=== PATIENT | female | born 1935 | race Caucasian/White ===

== ENCOUNTER 2019-05-16 12:33 | Emergency (ER) | payer MEDICARE, OTHER ==
--- NOTE | 2019-05-16 13:15 | ER Document Report ---
ED Medical Screen (RME) - General Chief Complaint: Weakness Stated Complaint: WEAKNESS Time Seen by Provider: 05/16/19 13:03 Primary Care Provider: IVAN BRIGGS MD [Primary Care Provider] - Follow up as needed Notes: 81-year-old female with no significant past medical history presents to the emergency department with chief complaint of the feeling of wanting to fall forward when she stands up. She states that she not have any dizziness, lightheadedness, vertigo but every time she stands up to try to do something she "feels like my face wants to plant into the ground". She denies any recent illness or vision changes, denies headache, denies acute weakness, denies acute shortness of breath or chest pain, denies nausea/vomiting/diarrhea. She states that she is prone to getting dehydrated and feels that she might be dehydrated at this time. I have greeted and performed a rapid initial assessment of this patient. A comprehensive ED assessment and evaluation of the patient, analysis of test results and completion of medical decision making process will be conducted by an additional ED providers. TRAVEL OUTSIDE OF THE [place] IN LAST 30 DAYS: No - Related Data Allergies/Adverse Reactions: Sulfa (Sulfonamide Antibiotics) Allergy (Verified 05/16/19 12:34) Past Medical History Endocrine Medical History: Reports: Hx Diabetes Mellitus Type 2 Renal/ Medical History: Denies: Hx Peritoneal Dialysis Past Surgical History: Reports: Hx Abdominal Surgery - 1/2 STOMACH /BLEEDING ULCERS, Hx Breast Surgery - BILATERAL MASTECTOMY Physical Exam - Vital signs Vitals: Temp Pulse Resp BP Pulse Ox 98.1 F 84 18 170/63 H 98 05/16/19 12:40 05/16/19 12:40 05/16/19 12:40 05/16/19 12:40 05/16/19 12:40 - Notes Notes: PHYSICAL EXAMINATION: Reviewed vital signs and charting by RN GENERAL: Alert, interacts well. No acute distress. HEAD: Normocephalic, atraumatic. EYES: Pupils equal and round. Extraocular movements intact. ENT: Oral mucosa moist, tongue midline. NECK: Full range of motion. Trachea midline. LUNGS: Clear to auscultation bilaterally, no wheezes, rales, or rhonchi. No respiratory distress. HEART: Regular rate and rhythm. No murmur EXTREMITIES: Moves all 4 extremities spontaneously. No edema, No cyanosis. PSYCH: Normal affect, normal mood. NEURO: A &O X 3, normal speech, normal gailt, PERRL, EOMI, SILT, follows commands in all 4 extremities, no gross abnormalities of cranial nerves, no focal neuro deficits, no pronator drift, [id number] testing normal, rapid alternating hand movements normal, [id number] normal, chemical blender strength 5/5 bilateral, 5/5 strength in both proximal and distal upper and lower extremities SKIN: Warm, dry, normal turgor. No rashes or lesions noted. Course - Vital Signs Vital signs: Temp Pulse Resp BP Pulse Ox 98.1 F 84 18 170/63 H 98 05/16/19 12:40 05/16/19 12:40 05/16/19 12:40 05/16/19 12:40 05/16/19 12:40 Doctor's Discharge - Discharge Referrals: IVAN BRIGGS MD [Primary Care Provider] - Follow up as needed
[2019-05-16 14:11] LABS: APPEARANCE,URINE SLIGHTLY-CLOUDY; BILIRUBIN,URINE NEGATIVE (NEGATIVE); COLOR,URINE YELLOW; GLUCOSE, URINE NEGATIVE (NEGATIVE); KETONES,URINE NEGATIVE (NEGATIVE); LEUKOCYTE ESTERASE,URINE LARGE (NEGATIVE); NITRITE,URINE NEGATIVE (NEGATIVE); PROTEIN,URINE NEGATIVE (NEGATIVE); UROBILINOGEN,URINE NEGATIVE mg/dL (<2.0)
[2019-05-16 14:12] LABS: ALANINE AMINOTRANSFERASE 25 U/L (9-52); ALBUMIN 4.1 g/dL (3.5-5.0); ALKALINE PHOSPHATASE 132 U/L (38-126); ANION GAP 11 (5-19); ASPARTATE AMINO TRANSFERASE 27 U/L (14-36); BILIRUBIN,DIRECT 0.1 mg/dL (0.0-0.4); BILIRUBIN,TOTAL 0.5 mg/dL (0.2-1.3); BLOOD UREA NITROGEN 13 mg/dL (7-20); CALCIUM 9.4 mg/dL (8.4-10.2); CARBON DIOXIDE 24 mmol/L (22-30); CHLORIDE 94 mmol/L (98-107); GLUCOSE 145 mg/dL (75-110); POTASSIUM 4.6 mmol/L (3.6-5.0); TOTAL PROTEIN 6.8 g/dL (6.3-8.2)
[2019-05-16 14:18] LABS: ABSOLUTE BASOPHILS # (AUTO) 0.1 10^3/uL (0.0-0.2); ABSOLUTE LYMPHOCYTES (AUTO) 1.7 10^3/uL (0.5-4.7); ABSOLUTE MONOCYTES (AUTO) 1.3 10^3/uL (0.1-1.4); ABSOLUTE NEUT (AUTO) 6.8 10^3/uL (1.7-8.2); BASOPHILS % (AUTO) 0.6 % (0-2); HEMOGLOBIN 11.3 g/dL (12.0-15.5); LYMPHOCYTES % (AUTO) 17.6 % (13-45); MEAN CORPUSCULAR HEMOGLOBIN 23.3 pg (27.0-33.4); MEAN CORPUSCULAR HGB CONC 32.4 g/dL (32.0-36.0); MEAN CORPUSCULAR VOLUME 72 fl (80-97); MONOCYTES % (AUTO) 13.1 % (3-13); PLATELET COUNT 429 10^3/uL (150-450); RED BLOOD COUNT 4.87 10^6/uL (3.72-5.28); RED CELL DISTRIBUTION WIDTH 17.3 % (11.5-14.0); SEGMENTED NEUTROPHILS % (AUTO) 68.7 % (42-78); TOTAL CELLS COUNTED % (AUTO) 100 %; WHITE BLOOD COUNT 9.9 10^3/uL (4.0-10.5)
[2019-05-16 14:37] LABS: CREATINE KINASE MB 1.17 ng/mL (<4.55)
[2019-05-16 14:39] LABS: TROPONIN I < 0.012 ng/mL
[2019-05-16] MEDS ORDERED: CEPHALEXIN 500 MG CAPSULE PO ONE (15:33)
[2019-05-16 16:00] VITALS: BP 168/72
--- NOTE | 2019-05-16 18:00 | EKG REPORT ---
SEVERITY:- BORDERLINE ECG - SINUS RHYTHM PROBABLE LEFT ATRIAL ABNORMALITY NONSPECIFIC ANTEROSEPTAL ST-T CHANGES : Confirmed by: Jones Gaffney MD 16-May-2019 17:59:39
--- NOTE | 2019-05-16 18:01 | EKG REPORT ---
SEVERITY:- ABNORMAL ECG - SINUS RHYTHM LEFT ATRIAL ABNORMALITY BORDERLINE INFERIOR Q WAVES : Confirmed by: Jones Gaffney MD 16-May-2019 18:00:49
--- NOTE | 2019-05-16 22:03 | ER Document Report ---
Entered by STEVAN PÉREZ SCRIBE 05/16/19 1538 Acting as scribe for:PHILLIP BURNETT DO ED General - General Chief Complaint: Weakness Stated Complaint: WEAKNESS Time Seen by Provider: 05/16/19 13:03 Primary Care Provider: ANTONIO HOGAN MD [Primary Care Provider] - Follow up as needed Mode of Arrival: Ambulatory Information source: Patient Notes: Patient is an 83 year old female with type 2 diabetes presents to the emergency department complaining of general malaise and confusion onset 1 year ago worsening this 1 week ago. Patient states she feels "like I'm going to fall on my face" and does not further elaborate. Patient states she has been dehydrated in the past and reports her symptoms feel similar. She also complains of constipation and increased flatulence. She denies any chest pain, nausea, vomiting, abdominal pain, diarrhea, dysuria, urinary burning or frequency or history of MA, strokes, stress test or cardiac catheterizations. Patient reports having a small sized bowel movement this morning. Patient's PCP is Dr. Mendosa. TRAVEL OUTSIDE OF THE [place] IN LAST 30 DAYS: No - Related Data Allergies/Adverse Reactions: Sulfa (Sulfonamide Antibiotics) Allergy (Verified 05/16/19 12:34) Past Medical History - General Information source: Patient - Social History Smoking Status: Never Smoker Cigarette use (# per day): No Chew tobacco use (# tins/day): No Smoking Education Provided: No Frequency of alcohol use: None Drug Abuse: None Lives with: Alone Family History: Reviewed & Not Pertinent Patient has suicidal ideation: No Patient has homicidal ideation: No Endocrine Medical History: Reports: Hx Diabetes Mellitus Type 2 Past Surgical History: Reports: Hx Abdominal Surgery - 1/2 STOMACH /BLEEDING ULCERS, Hx Breast Surgery - BILATERAL MASTECTOMY Review of Systems - Review of Systems Constitutional: See HPI, Malaise EENT: No symptoms reported Cardiovascular: No symptoms reported Respiratory: No symptoms reported Gastrointestinal: See HPI, Constipation Genitourinary: No symptoms reported Female Genitourinary: No symptoms reported Skin: No symptoms reported Hematologic/Lymphatic: No symptoms reported Neurological/Psychological: See HPI, Confusion -: Yes All other systems reviewed and negative Physical Exam - Vital signs Vitals: Temp Pulse Resp BP Pulse Ox 98.1 F 84 18 170/63 H 98 05/16/19 12:40 05/16/19 12:40 05/16/19 12:40 05/16/19 12:40 05/16/19 12:40 - Notes Notes: GENERAL: Alert, interacts well. No acute distress. HEAD: Normocephalic, atraumatic. EYES: Pupils equal, round, and reactive to light. Extraocular movements intact. ENT: Oral mucosa moist, tongue midline. NECK: Full range of motion. Supple. Trachea midline. LUNGS: Clear to auscultation bilaterally, no wheezes, rales, or rhonchi. No respiratory distress. HEART: Regular rate and rhythm. No murmurs, gallops, or rubs. ABDOMEN: Soft, non-tender. Non-distended. Bowel sounds present in all 4 quadrants. No guarding, rigidity, or rebound. EXTREMITIES: Moves all 4 extremities spontaneously. No edema, radial and dorsalis pedis pulses 2/4 bilaterally. No cyanosis. NEUROLOGICAL: Alert and oriented x3. Normal speech. PSYCH: Normal affect, normal mood. SKIN: Warm, dry, normal turgor. No rashes or lesions noted. Course - Re-evaluation Re-evalutation: 05/16/19 15:34 CBC shows mild anemia with hemoglobin 11.3, platelets normal, there is a monocytosis, sodium low at 129, no old ones to compare to, glucose elevated 145, cardiac enzymes negative x1, the symptoms have been going on for over a year and worsened over the past 2 weeks. One set of cardiac enzymes is sufficient to rule out non-STEMI. Urinalysis shows large leukocyte esterase, only 1 squamous epithelial cells so this does not appear to be contamination. Specific gravity is 1.010, no ketones, no indication of dehydration. EKG is nonischemic. Discussed with patient that her feelings of fatigue that have worsened over the past 2 weeks may well be related to the urinary tract infection. Discussed the importance of treating this and taking the antibiotics until they are gone but continuing to follow-up with her primary care physician for further work-up of her year-long history of fatigue. Patient was treated with Keflex here and will be prescribed Keflex for home. Discharged home. - Vital Signs Vital signs: Temp Pulse Resp BP Pulse Ox 98.4 F 84 15 168/72 H 100 05/16/19 15:47 05/16/19 12:40 05/16/19 15:47 05/16/19 15:47 05/16/19 15:47 - Laboratory Result Diagrams: 05/16/19 13:38 05/16/19 13:38 Laboratory results interpreted by me: 05/16/19 05/16/19 05/16/19 13:38 13:38 13:38 Hgb 11.3 L Hct 35.0 L MCV 72 L MCH 23.3 L RDW 17.3 H Monocytes % 13.1 H Sodium 129.0 L Chloride 94 L Glucose 145 H Alkaline Phosphatase 132 H Ur Leukocyte Esterase LARGE H - EKG Interpretation by Me Additional EKG results interpreted by me: 05/16/19 15:35 EKG shows sinus rhythm at a rate of 67, normal axis, normal intervals, nonsignificant ST segment elevations of less than 1 mm in 1, 2, no reciprocal depressions, only T wave inversions are in V2 per my interpretation. Discharge - Discharge Clinical Impression: Urinary tract infection Qualifiers: Urinary tract infection type: acute cystitis Hematuria presence: without hematuria Qualified Code(s): N30.00 - Acute cystitis without hematuria Fatigue Qualifiers: Fatigue type: chronic, unspecified Qualified Code(s): R53.82 - Chronic fatigue, unspecified Hypertension Qualifiers: Hypertension type: essential hypertension Qualified Code(s): I10 - Essential (primary) hypertension Condition: Stable Disposition: HOME, SELF-CARE Additional Instructions: Urinary Tract Infection Your evaluation indicates that you have a urinary tract infection. This is due to germs growing in the bladder. This is a common problem. This infection usually responds quickly to antibiotics. Your antibiotic should be taken exactly as prescribed. Drink plenty of fluids -- three to four quarts a day. Occasionally, a bladder anesthetic will be prescribed to help stop the feeling of urgency until the antibiotic has a chance to clear the infection. This may cause your urine to be dark orange. Certain urine infections require a culture. If the doctor obtained a culture, the results will be back in two days. You should call to see if a change in treatment is needed. A repeat urinalysis after you finish treatment is often recommended. The physician will let you know if further testing is required. Call the doctor if you develop fever, chills, flank pain, inability to urinate, or blood in the urine. I think the worsening of your fatigue and feeling like you are going to fall on your face is come from the urinary tract infection. It is important that she take the Keflex 1 tablet twice a day as directed until it is gone. You should be taking this for 7 days. Your sodium was slightly low. You do not have any signs of dehydration on your blood work. You may use a little bit more salt in your food. Please follow-up with Dr. Mendosa in the next 2 weeks to recheck your sodium. You should aim to drink approximately 8 glasses of water a day. Typically you do not need more than 8 glasses of water a day but if you are still feeling thirsty you may certainly drink more. Please dissolve 1 scoop of MiraLAX in a glass of water once a day to treat constipation. You may increase to twice a day if needed to create soft bowel movements and you may decrease to every other day if you develop diarrhea. Prescriptions: Cephalexin Monohydrate [Keflex 500 mg Capsule] 500 mg PO BID #14 capsule Referrals: ANTONIO HOGAN MD [Primary Care Provider] - Follow up as needed I personally performed the services described in the documentation, reviewed and edited the documentation which was dictated to the scribe in my presence, and it accurately records my words and actions.
== END 2019-05-16 16:00 | disposition home or self-care (01) ==
LOC: ER 12:33
DX: N30.00 Acute cystitis without hematuria (principal); R53.82 Chronic fatigue, unspecified; I10 Essential (primary) hypertension; R53.1 Weakness; R41.0 Disorientation, unspecified; K59.00 Constipation, unspecified; E11.9 Type 2 diabetes mellitus without complications
CPT/HCPCS: 93005; 99283; 36415; 87086; 82553; 82550; 85025; 87088; 80053; 81001; 84484; 93010; A9270

== ENCOUNTER 2019-06-15 10:44 | Day surgery (SDC) | payer MEDICARE, OTHER ==
[~2019-06-15 10:44] MED LIST: PROPOFOL INJ 200 MG/20 ML VIAL IV ONE
[2019-06-15 12:24] VITALS: BP 138/59
--- NOTE | 2019-06-15 12:30 | Operative Report ---
Operative Report DATE OF SURGERY: 06/15/19 PREOPERATIVE DIAGNOSIS: Iron deficiency anemia. Change in bowel habits POSTOPERATIVE DIAGNOSIS: Gastric mass/inflammation that was noted status post biopsy rule out adenocarcinoma. Possible cecal polyp removal with biopsy forceps. Very significant diverticulosis throughout the entire colon without any evidence of diverticulitis. Internal hemorrhoids OPERATION: Colonoscopy with biopsy. EGD with biopsy SURGEON: SHAHEEN SHEPHERD ANESTHESIA: LMAC TISSUE REMOVED OR ALTERED: As noted above. COMPLICATIONS: None. ESTIMATED BLOOD LOSS: None. INTRAOPERATIVE FINDINGS: As noted above. PROCEDURE: Risk benefits alternatives of the procedure including the risk of bleeding, perforation requiring surgery have been explained to the patient in detail and informed consent has been obtained. Patient is taken back to the endoscopy suite and placed in the left, lateral decubital position. Timeout was called. Propofol medication is administered. Rectal examination is done which did not reveal any masses, tears or fissures. An Olympus videoscope was introduced into the patient's rectum. The scope was then carefully advanced all the way to the cecum. The cecum was identified by the usual anatomical landmarks including the ileocecal valve as well as the appendiceal office. Photodocumentation is obtained. The scope was then sequentially pulled back via the various segments of the colon including the ascending colon, hepatic flexure, transverse colon, splenic flexure, descending colon and finally into the rectosigmoid portions of the colon. Retroflexion maneuvers performed. The risks benefits and alternatives of the procedure explained to the patient in detail and informed consent is obtained.A GIF Olympus video scope was inserted into the patient's mouth and hypopharynx, the esophagus is identified intubated and insufflated, the scope was then advanced through the esophagus stomach and duodenum, retroflexion maneuver is done, the esophagus stomach and first and second portions of the duodenum examined. Patient tolerated the procedure well. No immediate postprocedure complications are noted. Patient is discharged in good condition. Discharge date 06/15/2019. Discharge diet: Regular. Discharge activity: Regular. 2 to 3-week follow-up to discuss findings. Patient is instructed to call the office or proceed to the emergency room should there be any further problems or questions. Wait on the pathology. May need surgical referral.
== END 2019-06-15 12:25 | disposition home or self-care (01) ==
LOC: END 10:44
PROVIDERS: ATTEND Internal Medicine Gastroenterology
DX: K57.30 Diverticulosis of large intestine without perforation or abscess without bleeding (principal); K64.8 Other hemorrhoids; D12.0 Benign neoplasm of cecum; K31.9 Disease of stomach and duodenum, unspecified; D50.9 Iron deficiency anemia, unspecified; Z13.89 Encounter for screening for other disorder; Z87.11 Personal history of peptic ulcer disease; Z79.82 Long term (current) use of aspirin; Z79.4 Long term (current) use of insulin; Z79.899 Other long term (current) drug therapy
CPT/HCPCS: 82962; 88342 ×2; 88305 ×2; 00813; J2704; 43239; 45380; 813

== ENCOUNTER → 2019-07-31 | Outpatient (CLI) | payer MEDICARE, OTHER ==
--- NOTE | 2019-07-31 16:20 | RADIOLOGY REPORT (SQ) ---
EXAM DESCRIPTION: CT ABD/PELVIS WITH IV ORAL COMPLETED DATE/TIME: 07/31/2019 3:39 pm REASON FOR STUDY: K31.89 OTHER DISEASES OF STOMACH AND DUODENUM K31.89 OTHER DISEASES OF STOMACH AN D DUODENUM D64.9 ANEMIA, UNSPECIFIED K92.1 MELENA COMPARISON: None. TECHNIQUE: CT scan of the abdomen and pelvis performed using helical scanning technique with dynamic intravenous contrast injection. No oral contrast. Images reviewed with lung, soft tissue, and bone windows. Reconstructed coronal and sagittal MPR images reviewed. Delayed images for evaluation of the urinary system also acquired. All images stored on PACS. All CT scanners at this facility use dose modulation, iterative reconstruction, and/or weight based d osing when appropriate to reduce radiation dose to as low as reasonably achievable (ALARA). [facility]: Dose Right [facility]: CareDose [facility]: Dose Right [facility]: Teradose 4D [facility]: Seek & Adore CONTRAST TYPE AND DOSE: contrast/concentration: Isovue 350.00 mg/ml; Total Contrast Delivered: 94.0 ml; Total Saline Delivered: 67.9 ml RENAL FUNCTION: Creatinine 0.9 RADIATION DOSE: CT Rad equipment meets quality standard of care and radiation dose reduction techniq ues were employed. CTDIvol: 6.2 - 7.3 mGy. DLP: 640 mGy-cm.. LIMITATIONS: None. FINDINGS: LOWER CHEST: No significant findings. No nodules or infiltrates. LIVER: Normal size. No masses. No dilated ducts. SPLEEN: Normal size. No focal lesions. PANCREAS: No masses. No significant calcifications. No adjacent inflammation or peripancreatic fluid collections. Pancreatic duct not dilated. GALLBLADDER: No identified stones by CT criteria. No inflammatory changes to suggest cholecystitis. ADRENAL GLANDS: Mild thickening of the bilateral adrenal glands measuring up to 8 mm without discrete nodule. RIGHT KIDNEY AND URETER: No solid masses. No significant calcifications. No hydronephrosis or hyd roureter. LEFT KIDNEY AND URETER: No solid masses. No significant calcifications. No hydronephrosis or hydr oureter. AORTA AND VESSELS: No aneurysm. No dissection. Renal arteries, SMA, celiac without stenosis. RETROPERITONEUM: No retroperitoneal adenopathy, hemorrhage or masses. BOWEL AND PERITONEAL CAVITY: Postsurgical changes from partial gastrectomy. No evidence of intestina l obstruction. No focal bowel wall thickening. Scattered colonic diverticula. APPENDIX: Normal. PELVIS: Decompressed urinary bladder. No free fluid or adenopathy. ABDOMINAL WALL: No masses. No hernias. BONES: No acute bony abnormality. No suspicious osseous lesions. Lower lumbar spondylosis and facet arthropathy. L5 hemangioma. OTHER: No other significant finding. IMPRESSION: 1. Postsurgical changes from partial gastrectomy. Questionable gastric wall thickening versus nondistention. Endoscopy could be considered for further characterization. 2. No other evidence of acute intra-abdominal/pelvic process or findings to explain symptoms. 3. Colonic diverticulosis. TECHNICAL DOCUMENTATION: JOB ID: [id number] Quality ID # [id number]: Final reports with documentation of one or more dose reduction techniques (e.g., Au tomated exposure control, adjustment of the mA and/or kV according to patient size, use of iterative reconstruction technique) 2010 [employer]- All Rights Reserved Reading location - IP/workstation name: [email or web address]
== END ==
LOC: RAD 14:29
PROVIDERS: ATTEND Surgery
DX: K57.30 Diverticulosis of large intestine without perforation or abscess without bleeding (principal); K31.89 Other diseases of stomach and duodenum; D64.9 Anemia, unspecified; K92.1 Melena
CPT/HCPCS: 74177; 82565

== ENCOUNTER → 2019-08-05 | Outpatient (CLI) | payer MEDICARE, OTHER ==
[~2019-08-05] MED LIST changes: -PROPOFOL INJ 200 MG/20 ML VIAL IV ONE; +REGADENOSON INJ 0.4 MG/5 ML DISP.SYRIN IV ONE
--- NOTE | 2019-08-05 17:32 | XCELERA REPORT ---
[address] [address] Transthoracic Echocardiogram Report Name: SHELIA KNIGHT Age: 83 yrs Gender: Female : 1935 Patient Status: Outpatient Patient Location: RAD Study Date: 08/05/2019 10:46 AM Height: 66 in Weight: 161 lb BSA: 1.8 m2 Reason For Study: HTN Ordering Physician: ANTONIO HOGAN Performed By: Colleen Gomez Interpretation Summary Mild concentric LVH with normal LVEF >70% with prob no regional wall motion abnomrality, no LV enlargement, and stage I LV diastolic dysfunction, this is hypertensive heart disease. Mild nonstenotic calcific aortic valvular disease affecting non-coronary cusp, with trace AR and no LV enlargement. No TR jet seen or sampled to derive RVSP to assess if pulm hypertension. MMode/2D Measurements & Calculations RVDd: 2.9 cm LVIDd: 3.5 cm FS: 34.6 % Ao root diam: 2.3 cm IVSd: 0.91 cm LVIDs: 2.3 cm EDV(Teich): 50.7 ml LVPWd: 1.2 cm ESV(Teich): 17.9 ml Ao root area: 4.1 cm2 LA dimension: 2.9 cm EF(Teich): 64.8 % Doppler Measurements & Calculations MV E max dionne: MV P1/2t max dionne: Ao V2 max: LV V1 max P.8 cm/sec 58.2 cm/sec 100.4 cm/sec 3.3 mmHg MV A max dionne: MV P1/2t: 105.6 msec Ao max PG: LV V1 max: 98.7 cm/sec MVA(P1/2t): 2.1 cm2 4.0 mmHg 90.5 cm/sec MV E/A: 0.57 MV dec slope: 161.5 cm/sec2 MV dec time: 0.32 sec PA V2 max: MV P1/2t-pr_phl: 80.5 cm/sec 105.6 msec PA max P.6 mmHg Left Ventricle The left ventricular cavity is small. There is mild concentric left ventricular hypertrophy. The left ventricular ejection fraction is normal. LV EF is 70%. Doppler measurements suggest impaired left ventricular relaxation, which is associated with grade I/IV or mild diastolic dysfunction. No regional wall motion abnormalities noted. There is no thrombus. Right Ventricle The right ventricle is grossly normal size. The right ventricular systolic function is normal. Atria The right atrium is normal. The left atrial size is normal. The interatrial septum is intact with no evidence for an atrial septal defect. Mitral Valve There is moderate mitral annular calcification. There is no evidence of mitral valve prolapse. There is no mitral valve stenosis. There is no mitral regurgitation noted. Aortic Valve The aortic valve opens well. The aortic valve is moderately calcified. The aortic valve is trileaflet. There is no aortic valvular vegetation. There is no aortic valve stenosis. There is a trace amount of aortic regurgitation. Tricuspid Valve The tricuspid is normal in structure and function. No tricuspid regurgitation. Pulmonic Valve The pulmonic valve is not well visualized. Great Vessels The aortic root is normal size. Effusions Minimal pericardial effusion. I WMSI = 1.00 % Normal = 100 Segments Size X - Cannot 2 - 4 - 1-2 small Interpret 1 - Normal Hypokinetic 3 - AkineticDyskinetic 3-5 moderate 5 - 6-14 large Aneurysmal 15-16 diffuse : ANTONIO HOGAN Andre
--- NOTE | 2019-08-07 00:18 | DRAGON STRESS TEST REPORT ---
Intravenous Lexiscan Cardiolite stress test using single photon emmision computerized tomography. Date of procedure: 08/05/2019. Ordering Provider: Dr. Greg Naylor. Patient's status Out Patient. Indication: Diabetes mellitus, hypertension, for preoperative cardiac risk assessment. Coronary risk factors: Age, hypertension, diabetes mellitus. Resting EKG: Sinus Rhythm. Within Normal Limits. Stress EKG: No changes of ischemia. The patient has no chest pain or discomfort, and there were no arrhythmias seen. Reason for termination: Protocol. Conclusions: Normal EKG and hemodynamic response to IV Lexiscan. Nuclear data: At rest the patient was given 11.89 millicuries of technetium 99m sestamibi injected intravenously. As per protocol rest non gated SPECT images were obtained. Subsequently the patient was given intravenous Lexiscan at a dose of 0.4 mg in 5 mL intravenously, followed by flush with normal saline. Subsequently the stress dose of 34.6 millicuries of technetium 99m sestamibi was injected intravenously. As per protocol stress gated images were obtained. Nuclear interpretation: Review of images showed that all segments of the myocardium had normal perfusion at rest, and normal perfusion post stress with IV Lexiscan. All segments of the myocardium had normal motion, contraction, and thickening by gated study. T. I D. ratio was calculated at 1.82. This is unreliable in view of the patient's small LV cavity. Hence this TID is not reliable.. There is no transient ischemic dilatation of the left ventricle. Computer read rest, and stress left ventricular ejection fraction were 89 %, and 82 %, respectively. Conclusion: 1. There is no scintigraphic evidence of Lexiscan induced myocardial ischemia. 2. There is no scintigraphic evidence of myocardial infarction/scar. Correlate clinically. Recommendations: Aggressive risk factor modification, and treating the underlying co- morbidities. MTDD
== END ==
LOC: RAD 08:27
PROVIDERS: ATTEND Internal Medicine
DX: Z01.818 Encounter for other preprocedural examination (principal); I10 Essential (primary) hypertension; E11.9 Type 2 diabetes mellitus without complications; Z79.899 Other long term (current) drug therapy
CPT/HCPCS: 93306; 93017; 78452; A9500; J2785; Q9969